=== PATIENT | female | born 1950 | race Caucasian/White ===

== ENCOUNTER → 2019-04-24 | Outpatient (REF) | payer MEDICARE ==
[~2019-04-24] MED LIST: ASPI81TA45 OR; ASPI81TAEC PO; BACITAB PO; DOXY100C PO; MULTIVIT PO; VITMTA PO
== END ==
LOC: M LAB REF 13:25
PROVIDERS: ATTEND Plastic Surgery Surgery of the Hand
DX: L72.0 Epidermal cyst (principal); D49.2 Neoplasm of unspecified behavior of bone, soft tissue, and skin

== ENCOUNTER 2025-07-13 03:37 | Emergency (ER) | payer MEDICARE ==
[~2025-07-13] VITALS: Ht 175.3 cm; Wt 62.2 kg
[~2025-07-13 03:37] MED LIST changes: +ASPI-569 PO; -ASPI81TAEC PO; -DOXY100C PO; +DOXY100C3 PO
[2025-07-13 08:15] VITALS: BP 137/64; TEMP 98.6; O2SAT 95
== END 2025-07-13 08:45 | disposition home or self-care (01) ==
LOC: M ED 03:37
DX: S70.12XA Contusion of left thigh, initial encounter (principal); S70.02XA Contusion of left hip, initial encounter; M79.672 Pain in left foot; W01.198A Fall on same level from slipping, tripping and stumbling with subsequent striking against other object, initial encounter; Y92.009 Unspecified place in unspecified non-institutional (private) residence as the place of occurrence of the external cause; Y93.89 Activity, other specified; Y99.9 Unspecified external cause status; Z79.82 Long term (current) use of aspirin; Z79.899 Other long term (current) drug therapy